=== PATIENT | male | born 1995 | race Caucasian/White ===

== ENCOUNTER 2019-07-27 10:17 | Emergency (ER) | payer OTHER, BC ==
[2019-07-27] MEDS ORDERED: Sodium Chloride 0.9% 10 ML Syringe FLUSH PRN (10:50)
[2019-07-27 11:11] LABS: ANION GAP 11.4; CHLORIDE,CL 105 mmol/L (101-111); SODIUM,NA 140 mmol/L (135-145)
[2019-07-27] MEDS ORDERED: Sodium Chloride 0.9% 1,000 ML IV SCH (11:15)
--- NOTE | 2019-07-27 12:28 | EDM.PDOC ---
Scribed by Mohini Lyons 07/27/19 1151 for Cherrie Marrero NP ED HPI GENERAL MEDICAL PROBLEM - General Chief Complaint: Chest Pain Stated Complaint: CHEST PAIN Time Seen by Provider: 07/27/19 11:03 Source of Information: Reports: Patient, RN, RN Notes Reviewed History Limitations: Reports: No Limitations, Other - History of Present Illness INITIAL COMMENTS - FREE TEXT/NARRATIVE: Patient presents to ER with complaint of chest pain 2 days. 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 There is no history of cardiac problems in patient or in his family. He does not smoke/ no etoh or drug use. He has left anterior chest pain. It is sharp without radiation. Movement; twisting worsens the pain earlier. No nausea, vomiting, diarrhea or shortness of breath. No recent illness. The pain is now minimally apparent. Onset: Gradual Duration: Constant Location: Reports: Chest Quality: Reports: Ache Severity: Moderate Improves with: Reports: None Worsens with: Reports: None Associated Symptoms: Reports: No Other Symptoms 4 Pain Score (Numeric/FACES): 4 - Related Data Allergies Allergy/AdvReac Type Severity Reaction Status Date / Time No Known Allergies Allergy Verified 07/27/19 10:23 Home Meds: Home Meds . [No Known Home Meds] 07/27/19 [History] Past Medical History - Past Health History Medical/Surgical History: Denies Medical/Surgical History - Past Surgical History HEENT Surgical History: Reports: Other (See Below) (wisdom teeth) ED ROS GENERAL - Review of Systems Review Of Systems: ROS reveals no pertinent complaints other than HPI. ED EXAM, GENERAL - Physical Exam Exam: See Below Exam Limited By: No Limitations General Appearance: Alert, WD/WN, No Apparent Distress Eye Exam: Bilateral Eye: EOMI, Normal Inspection, PERRL Ears: Normal External Exam, Normal Canal, Hearing Grossly Normal, Normal TMs Nose: Normal Inspection, Normal Mucosa, No Blood Throat/Mouth: Normal Inspection, Normal Lips, Normal Teeth, Normal Gums, Normal Oropharynx, Normal Voice, No Airway Compromise Head: Atraumatic, Normocephalic Neck: Normal Inspection, Supple, Non-Tender, Full Range of Motion Respiratory/Chest: Other (left midchest--minimal. Nontender to palpate over the chest. Moves left arm without pain. No pain with respiration. ) Cardiovascular: Normal Peripheral Pulses, Regular Rate, Rhythm, No Edema, No Gallop, No JVD, No Murmur, No Rub GI/Abdominal: Normal Bowel Sounds, Soft, Non-Tender, No Organomegaly, No Distention, No Abnormal Bruit, No Mass (Male) Exam: Deferred Rectal (Males) Exam: Deferred Back Exam: Normal Inspection, Full Range of Motion, NT Extremities: Normal Inspection, Normal Range of Motion, Non-Tender, Normal Capillary Refill, No Pedal Edema Neurological: Alert, Oriented, CN II-XII Intact, Normal Cognition, Normal Gait, Normal Reflexes, No Motor/Sensory Deficits Psychiatric: Normal Affect, Normal Mood Skin Exam: Warm, Dry, Intact, Normal Color, No Rash Course - Vital Signs Last Recorded V/S: Last Vital Signs Temp 36.8 C 07/27/19 10:32 Pulse 94 07/27/19 11:33 Resp 20 07/27/19 11:15 BP 127/109 H 07/27/19 11:15 Pulse Ox 94 L 07/27/19 11:33 Orthostatic Blood Pressure [ 102/78 Standing] Orthostatic Blood Pressure [ 114/67 Sitting] Orthostatic Blood Pressure [ 106/54 Supine] - Orders/Labs/Meds Orders: Active Orders 24 hr Category Date Time Status EKG 12 Lead [EKG Documentation Completion] [RC] STAT Care 07/27/19 10:30 Active Orthostatic Vital Signs [RC] ASDIRECTED Care 07/27/19 11:58 Active Peripheral IV Care [RC] . DIRECTED Care 07/27/19 10:50 Active CXR [Chest 2V] [CR] Urgent Exams 07/27/19 10:49 Taken Sodium Chloride 0.9% [Normal Saline] 1,000 ml Med 07/27/19 11:15 Active IV ASDIRECTED Sodium Chloride 0.9% [Saline Flush] Med 07/27/19 10:50 Active 10 ml FLUSH ASDIRECTED PRN Peripheral IV Insertion Adult [OM.PC] Routine Oth 07/27/19 10:50 Ordered Medication Orders Sodium Chloride (Normal Saline) 1,000 mls @ 900 mls/hr IV ASDIRECTED CEDRICK Last Admin: 07/27/19 11:22 Dose: 900 mls/hr Sodium Chloride (Saline Flush) 10 ml FLUSH ASDIRECTED PRN PRN Reason: Keep Vein Open Last Admin: 07/27/19 10:45 Dose: 10 ml Labs: Laboratory Tests 07/27/19 07/27/19 07/27/19 Range/Units 10:43 10:43 10:43 WBC 3.8 L (5.0-10.0) 10^3/uL RBC 4.94 (4.6-6.2) 10^6/uL Hgb 15.8 (14.0-18.0) g/dL Hct 43.5 (40.0-54.0) % MCV 88.1 (80-100) fL MCH 32.0 (27.0-34.0) pg MCHC 36.3 H (33.0-35.0) g/dL Plt Count 230 (150-450) 10^3/uL Neut % (Auto) 49.0 (42.2-75.2) % Lymph % (Auto) 32.0 (20.5-50.1) % [place] % (Auto) 14.1 H (2-8) % Eos % (Auto) 3.6 H (1.0-3.0) % Baso % (Auto) 1.3 H (0.0-1.0) % D-Dimer, Quantitative < 100 (0-400) ng/mL Sodium 140 (135-145) mmol/L Potassium 4.4 (3.6-5.0) mmol/L Chloride 105 (101-111) mmol/L Carbon Dioxide 28.0 (21.0-31.0) mmol/L Anion Gap 11.4 BUN 15 (7-18) mg/dL Creatinine 0.9 (0.6-1.3) mg/dL Est Cr Clr Drug Dosing 145.50 mL/min Estimated GFR (MDRD) > 60 BUN/Creatinine Ratio 16.66 Glucose 92 (74-105) mg/dL Calcium 9.4 (8.4-10.2) mg/dl Total Bilirubin 1.1 H (0.2-1.0) mg/dL AST 20 (10-42) IU/L ALT 14 (10-60) IU/L Alkaline Phosphatase 56 (42-121) IU/L Troponin I 0.00 (0.00-0.08) ng/mL Total Protein 7.2 (6.7-8.2) g/dl Albumin 4.5 (3.2-5.5) g/dl Globulin 2.7 Albumin/Globulin Ratio 1.67 Meds: Medications Generic Name Dose Route Start Last Admin Trade Name Deborah PRN Reason Stop Dose Admin Sodium Chloride 1,000 mls @ 900 mls/hr 07/27/19 11:15 07/27/19 11:22 Normal Saline IV 900 mls/hr ASDIRECTED CEDRICK Administration Sodium Chloride 10 ml 07/27/19 10:50 07/27/19 10:45 Saline Flush FLUSH 10 ml ASDIRECTED PRN Administration Keep Vein Open - Radiology Interpretation Free Text/Narrative:: CXR: No acute cardiopulmonary abnormality. Hyperinflated lungs. See rad report. - Re-Assessments/Exams Free Text/Narrative Re-Assessment/Exam: 07/27/19 11:48 Left chest discomfort; off and on 2 days; located over the mid left chest. earlier today worsened with twisting. No radiating sx, nausea, or illness. Got dizzy in radiology; standing. Ortho VS positive; mild. Given 1 L NS. By the time he left pain resolved. His D-dimer, troponin was negative. Elevation in HR 100 with standing improved with IVF. He will f/u with his PCP. He will keep hydrated. Departure - Departure Time of Disposition: 11:51 Disposition: Home, Self-Care 01 Condition: Good Clinical Impression: Dehydration symptoms, Musculoskeletal chest pain Instructions: Nonspecific Chest Pain Forms: ED Department Discharge Additional Instructions: Keep hydrated. See you PCP if sx not resolving. Use heat to area 4 x per day. Rest - My Orders Last 24 Hours: My Active Orders 07/27/19 10:30 EKG 12 Lead [EKG Documentation Completion] [RC] STAT 07/27/19 10:49 CXR [Chest 2V] [CR] Urgent 07/27/19 10:50 Peripheral IV Care [RC] . DIRECTED Sodium Chloride 0.9% [Saline Flush] 10 ml FLUSH ASDIRECTED PRN Peripheral IV Insertion Adult [OM.PC] Routine 07/27/19 11:15 Sodium Chloride 0.9% [Normal Saline] 1,000 ml IV ASDIRECTED 07/27/19 11:58 Orthostatic Vital Signs [RC] ASDIRECTED - Assessment/Plan Last 24 Hours: My Active Orders 07/27/19 10:30 EKG 12 Lead [EKG Documentation Completion] [RC] STAT 07/27/19 10:49 CXR [Chest 2V] [CR] Urgent 07/27/19 10:50 Peripheral IV Care [RC] . DIRECTED Sodium Chloride 0.9% [Saline Flush] 10 ml FLUSH ASDIRECTED PRN Peripheral IV Insertion Adult [OM.PC] Routine 07/27/19 11:15 Sodium Chloride 0.9% [Normal Saline] 1,000 ml IV ASDIRECTED 07/27/19 11:58 Orthostatic Vital Signs [RC] ASDIRECTED I have read and agree with the documentation that has been completed regarding this visit. By signing this record, I attest that the documentation was completed in my physical presence and is an accurate record of the encounter.
== END 2019-07-27 12:33 | disposition home or self-care (01) ==
LOC: DL.ED 10:17
DX: R07.89 Other chest pain (principal); E86.0 Dehydration; Z82.49 Family history of ischemic heart disease and other diseases of the circulatory system
CPT/HCPCS: 36415; 71046; 80053; 84484; 85025; 85379; 93005; 96360; 99285; J7030